=== PATIENT | male | born 2000 | race Caucasian/White ===

== ENCOUNTER 2018-07-21 15:40 | Emergency (ER) | payer BC ==
[2018-07-21 15:54] VITALS: BP 132/71
--- NOTE | 2018-07-21 15:57 | UC ---
Lower Extremity/Ankle HPI - HPI Summary HPI Summary: 17-year-old male presents with 3 day history of tenderness of the left great toe. States has had a history of a ingrown toenail in the past which resolved without treatment. Complaints of tenderness to the lateral nail fold, mild redness, no drainage. Denies fever, chills, numbness, or tingling. - History of Current Complaint Stated Complaint: LT GREAT TOE COMPLAINT Time Seen by Provider: 07/21/18 15:48 Hx Obtained From: Patient - Allergies/Home Medications Allergies/Adverse Reactions: Allergies Allergy/AdvReac Type Severity Reaction Status Date / Time No Known Allergies Allergy Verified 07/21/18 15:50 PMH/Surg Hx/FS Hx/Imm Hx Previously Healthy: Yes - Denies significant PMH Review of Systems All Other Systems Reviewed And Are Negative: Yes Constitutional: Negative: Fever, Chills Skin: Positive: Other - See HPI Respiratory: Positive: Negative Cardiovascular: Positive: Negative Gastrointestinal: Positive: Negative Genitourinary: Positive: Negative Musculoskeletal: Positive: Negative Neurological: Positive: Negative Is Patient Immunocompromised?: No Physical Exam - Summary Physical Exam Summary: GENERAL APPEARANCE: Well developed, well nourished, alert and cooperative, and appears to be in no acute distress. CARDIAC: Normal S1 and S2. No S3, S4 or murmurs. Rhythm is regular. There is no peripheral edema, cyanosis or pallor. Extremities are warm and well perfused. Capillary refill is less than 2 seconds. Peripheral pulses intact. LUNGS: Clear to auscultation without rales, rhonchi, wheezing or diminished breath sounds. ABDOMEN: Positive bowel sounds. Soft, nondistended, nontender. No guarding or rebound. No masses or hepatosplenomegally. MUSKULOSKELETAL: ROM intact to all extremities. No joint erythema or tenderness. Normal muscular development. Normal gait. SKIN: Mild ingrown nail of the left great toe with mild tenderness and erythema without induration, fluctuance, or drainage. Triage Information Reviewed: Yes Vital Signs Reviewed: Yes Lower Extremity Course/Dx - Course Course Of Treatment: 17-year-old male presents with 3 day history of tenderness of the left great toe. States has had a history of a ingrown toenail in the past which resolved without treatment. Complaints of tenderness to the lateral nail fold, mild redness, no drainage. Denies fever, chills, numbness, or tingling. Afebrile. Vital signs stable. Exam reveals a young adult male in no acute distress with mild tenderness and erythema to the lateral nail fold of the left great toe without induration, fluctuance, or drainage otherwise unremarkable exam. We will place patient on a short course of cephalexin 500 mg 3 times a day 7 days and and have him perform warm water and Epsom salt solution soaks at least 3 times a day and to push the lateral nail fold away from the nail plate until the nail has grown out. I also provided him with a referral to podiatry should his symptoms not improve or if he has a reoccurrence of his symptoms. Anticipatory guidance and warning symptoms are reviewed with the patient. He verbalizes understanding and agrees with plan of care. - Differential Dx/Diagnosis Differential Diagnosis/HQI/PQRI: Gout, Infection, Other - Ingrown toe nail Provider Diagnosis: Ingrown left greater toenail Discharge - Sign-Out/Discharge Documenting (check all that apply): Patient Departure All imaging exams completed and their final reports reviewed: No Studies - Discharge Plan Condition: Stable Disposition: HOME Prescriptions: Cephalexin CAP* [Keflex 500 CAP*] 500 mg PO TID #21 cap Patient Education Materials: Ingrown Nail (ED) Referrals: Quang Ferrer MD [Primary Care Provider] - Damion Beavers DPM [Doctor of Podiatric Medicine] - 7 Days (If no improvement or reoccurence.) Additional Instructions: Start cephalexin 1 capsule every 8 hours for 7 days to treat the infection. Soak the foot in a warm water and Epsom salt solution at least 3 times a day. Be careful to cut your toenails strait across in the future to avoid causing an ingrown nail. Use acetaminophen (Tylenol) or ibuprofen (Advil, Motrin) according to directions as needed for pain. Follow up with Dr. Beavers, podiatry, in 7 days if symptoms do not improve or if symptoms reoccur. Seek immediate medical attention if you develop fever greater than 100.5 F, have pain that is not managed with pain medication, have redness that spreads or increased swelling, or any worsening of symptoms. - Billing Disposition and Condition Condition: STABLE Disposition: Home
== END 2018-07-21 16:02 | disposition home or self-care (01) ==
LOC: UCCORT 15:40
DX: L60.0 Ingrowing nail (principal)
CPT/HCPCS: 99202; G0463

== ENCOUNTER 2019-05-12 14:15 | Emergency (ER) | payer BC ==
--- NOTE | 2019-05-12 16:44 | UC ---
General HPI - HPI Summary HPI Summary: Patient is a 18-year-old male presenting with complaint of "chest tightness." Patient describes "feeling like a golf ball is in his chest." Describes pain as "uncomfortable but not painful." Rates it as 2-3/10. States the pain is "right in the middle kind of where his ribs meet." Denies radiation of pain. States he has had this for the past 7 months and was seen by his primary care. States EKG a primary care was normal and that he was told to follow up if it ever got worse. Patient states yesterday became worse but the past several months it has been tolerable. Notes only aggravating factor is deep breaths. Denies alleviating factors. Patient does note acid reflux for the past week, which she states is not normal for him. Denies any decreased appetite or fluid intake. Denies burning sensation in chest. Denies cough, shortness of breath, and wheezing. Denies nausea and vomiting. Denies fever, chills, diaphoresis. Denies recent illness. Denies history of childhood illnesses. Denies alcohol and substance use. Nonsmoker. Denies family history of cardiac disorders. Patient states he took 800 mg ibuprofen yesterday which only helped his headache , not the discomfort in his chest. - History of Current Complaint Chief Complaint: UCChestPain Stated Complaint: CHEST TIGHTNESS Hx Obtained From: Patient Pain Intensity: 2 - Allergy/Home Medications Allergies/Adverse Reactions: Allergies Allergy/AdvReac Type Severity Reaction Status Date / Time No Known Allergies Allergy Verified 05/12/19 14:24 Home Medications: Home Medications NK [No Home Medications Reported] 05/12/19 [History Confirmed 05/12/19] PMH/Surg Hx/FS Hx/Imm Hx Previously Healthy: Yes - Surgical History Surgical History: None - Family History Known Family History: Positive: None - Social History Alcohol Use: None Substance Use Type: None Smoking Status (MU): Never Smoked Tobacco Review of Systems All Other Systems Reviewed And Are Negative: Yes Constitutional: Positive: Negative. Negative: Fever, Chills, Fatigue Skin: Positive: Negative ENT: Positive: Negative Respiratory: Positive: Negative. Negative: Shortness Of Breath, Cough Cardiovascular: Positive: Chest Pain - "chest tightness," "feeling of golf ball in the middle of chest". Negative: Palpitations Gastrointestinal: Positive: Negative. Negative: Abdominal Pain, Vomiting, Diarrhea, Nausea Musculoskeletal: Positive: Negative Neurological: Positive: Negative Physical Exam Triage Information Reviewed: Yes Appearance: Well-Appearing, No Pain Distress, Well-Nourished Vital Signs: Initial Vital Signs Temp 98.4 F 05/12/19 14:18 Pulse 77 05/12/19 14:18 Resp 16 05/12/19 14:18 BP 111/76 05/12/19 14:18 Pulse Ox 100 05/12/19 14:18 Vital Signs Reviewed: Yes Eyes: Positive: Conjunctiva Clear ENT: Positive: Hearing grossly normal Neck: Positive: Supple Respiratory Exam: Normal Respiratory: Positive: Chest non-tender, Lungs clear, Normal breath sounds, No respiratory distress, No accessory muscle use. Negative: Crackles, Rhonchi, Stridor, Wheezing, Plerual rub Cardiovascular Exam: Normal Cardiovascular: Positive: RRR, No Murmur, Pulses Normal. Negative: Tachycardia , Bradycardia Abdomen Description: Positive: No Organomegaly, Soft, Other: - negative rovsings. Negative: Nontender - tenderness with palpation of epigastric region , Distended, Guarding, McBurney's Point Tenderness Bowel Sounds: Positive: Present - BS x4 Neurological: Positive: Alert Psychological: Positive: Age Appropriate Behavior Skin Exam: Normal - no erythema or ecchymosis Diagnostics - Radiology chest Radiology Interpretation Completed By: Radiologist Summary of Radiographic Findings: FINDINGS: The heart and mediastinum are normal in size and contour. The lungs are grossly clear. There is no evidence of large pleural effusion. Visualized bones are normal for the patient's age. There is no radiographic evidence of free air beneath the diaphragm IMPRESSION: No radiographic evidence of acute cardiopulmonary disease. - EKG Cardiac Rate: NL - 60's Cardiac Rhythm: Sinus: Normal Ectopy: None ST Segment: Normal Summary of EKG Findings: normal EKG Course/Dx - Course Course Of Treatment: Patien EKG normal and CXR normal. PE findings revealed epigastric tenderness. No chest pain or tenderness. Instructed patient to take pepcid for acid reflux and to follow up with pcp and GI referral for further evaluation. Instructed to go to ED with any new or worsening symptoms. Patient voiced understanding and agreed with treatment plan. Patient VS normal, well-appearing, and in no pain or respiratory distress throughout visit. Dr. Iqbal also examined patient and agreed with treatment plan. - Differential Dx - Multi-Symptom Differential Diagnoses: Other - gastritis - Diagnoses Provider Diagnosis: Epigastric abdominal tenderness Discharge ED - Sign-Out/Discharge Documenting (check all that apply): Patient Departure All imaging exams completed and their final reports reviewed: No Studies - Discharge Plan Condition: Stable Disposition: HOME Patient Education Materials: Gastritis (ED), Epigastric Pain (ED) Referrals: Areli Kim MD [Medical Doctor] - As Soon As Possible Quang Ferrer MD [Primary Care Provider] - Additional Instructions: As discussed, your EKG and chest xray were both normal today. It is recommended that you take an over the counter antacid, such as Pepcid, to help relieve symptoms of acid reflux. Follow up with your primary care provider and the gastroenterology referral listed below for further evaluation of symptoms. Go to the emergency room with any new or worsening symptoms. - Billing Disposition and Condition Condition: STABLE Disposition: Home - Attestation Statements Provider Attestation: I was available for consult. This patient was seen by the LINDA and care discussed with me. I took history and examined the patient. HPI: epigastric pain x 7 months, prior ekg normal. comes in for evaluation as it got worse yesterday. no nausea or vomiting, no fever. no diarrhea or constipation. able to tolerate po. Physical exam: Gen: comfortable,no distress. Alert and oriented x 3 Chest: no deformity, no costochondral tenderness. RRR s1s2 normal , no murmur. Lungs: lungs clear to auscultation, no rhonchi abdomen: soft, mild tenderness in epigastric area, no distension, guarding , rebound noted. Testing: EKG: NSR, HR in 60's, no JESSE, Normal qrs, normal pr . Normal ekg. Chest xrays : normal. Assessment/ plan: likely gastritis. Plan to treat with H2 page and follow up with PMD. He expressed understanding . ' -Darren Iqbal MD
[2019-05-12 17:51] VITALS: BP 113/64
== END 2019-05-12 17:35 | disposition home or self-care (01) ==
LOC: UCCORT 14:15
DX: R10.816 Epigastric abdominal tenderness (principal); R07.9 Chest pain, unspecified
CPT/HCPCS: 71046; 93005; 99212; G0463